=== PATIENT | female | born 1975 | race Caucasian/White ===

== ENCOUNTER 2016-12-01 22:30 | Emergency (ER) | payer MEDICARE | END 2016-12-02 03:20 | disposition home or self-care (01) | LOC: D.ER 22:30 | DX: G43.909 Migraine, unspecified, not intractable, without status migrainosus (principal); M54.5 Low back pain; M54.10 Radiculopathy, site unspecified; M54.31 Sciatica, right side ==

== ENCOUNTER 2016-12-16 05:47 | Emergency (ER) | payer MEDICARE | END 2016-12-16 08:06 | disposition home or self-care (01) | LOC: D.ER 05:47 | DX: M54.5 Low back pain (principal) ==

== ENCOUNTER 2017-01-23 23:18 | Emergency (ER) | payer MEDICARE ==
[2017-01-24 00:55] LABS: BASOPHILS 0.4 % (0.0-2.0); EOSINOPHILS 2.2 % (0-7); HEMATOCRIT 39.3 % (36.0-48.0); HEMOGLOBIN 13.4 g/dL (12-16); IMMATURE GRANULOCYTES 0.7 % (0-5); LYMPHOCYTES 25.7 % (15-50); MCH 29.8 pg (26.0-34.0); MCHC 34.1 g/dL (31.0-37.0); MCV 87.5 fL (80.0-100.0); MEAN PLATELET VOLUME 9.7 fL (7.4-10.4); MONOCYTES 5.3 % (2-11); NEUTROPHILS 65.7 % (40-80); PLATELET COUNT 290 10x3/uL (130-400); RBC 4.49 10x6/uL (4.00-5.40); RDW 12.9 % (11.5-14.5)
[2017-01-24 01:20] LABS: ALBUMIN 3.5 g/dL (3.4-5.0); ANION GAP 11.6 mmol/L (8-16); BILIRUBIN - TOTAL 0.2 mg/dL (0.2-1.3); CALCIUM 8.1 mg/dL (8.5-10.1); CARBON DIOXIDE 27.3 mmol/L (21.0-32.0); CREATININE - SERUM 1.1 mg/dL (0.6-1.3); POTASSIUM - SERUM 3.9 mmol/L (3.5-5.1); PROTEIN - SERUM 6.4 g/dL (6.4-8.2)
== END 2017-01-24 01:55 | disposition home or self-care (01) ==
LOC: D.ER 23:18
PROVIDERS: Physician Assistant Medical
DX: G43.909 Migraine, unspecified, not intractable, without status migrainosus (principal); K52.9 Noninfective gastroenteritis and colitis, unspecified

== ENCOUNTER 2017-02-03 04:38 | Emergency (ER) | payer MEDICARE | END 2017-02-03 06:15 | disposition home or self-care (01) | LOC: D.ER 04:38 | DX: G43.909 Migraine, unspecified, not intractable, without status migrainosus (principal) ==

== ENCOUNTER 2017-02-24 23:42 | Emergency (ER) | payer MEDICARE | END 2017-02-25 02:19 | disposition home or self-care (01) | LOC: D.ER 23:42 | DX: G43.909 Migraine, unspecified, not intractable, without status migrainosus (principal); M54.12 Radiculopathy, cervical region ==

== ENCOUNTER 2017-04-27 01:07 | Emergency (ER) | payer MEDICARE ==
[2017-04-27 03:15] LABS: BASOPHILS 0.4 % (0-2); HEMATOCRIT 39.1 % (36.0-48.0); HEMOGLOBIN 13.4 g/dL (12-16); IMMATURE GRANULOCYTES 0.2 % (0-5); LYMPHOCYTES 31.7 % (15-50); MCH 30.4 pg (26.0-34.0); MCHC 34.3 g/dL (31.0-37.0); MCV 88.7 fL (80.0-100.0); MEAN PLATELET VOLUME 9.7 fL (7.4-10.4); MONOCYTES 6.3 % (2-11); NEUTROPHILS 57.4 % (40-80); PLATELET COUNT 309 10x3/uL (130-400); RBC 4.41 10x6/uL (4.00-5.40); RDW 12.5 % (11.5-14.5); WBC 8.1 10x3/uL (4.8-10.8)
[2017-04-27 03:29] LABS: ALBUMIN 3.1 g/dL (3.4-5.0); ANION GAP 10.8 mmol/L (8-16); BILIRUBIN - TOTAL 0.19 mg/dL (0.2-1.3); CALCIUM 8.2 mg/dL (8.5-10.1); CARBON DIOXIDE 27.1 mmol/L (21.0-32.0); POTASSIUM - SERUM 3.9 mmol/L (3.5-5.1); PROTEIN - SERUM 5.9 g/dL (6.4-8.2)
[2017-04-27 03:46] LABS: APPEARANCE CLEAR (CLEAR); BILIRUBIN NEGATIVE (NEGATIVE); COLOR YELLOW (YELLOW); GLUCOSE NEGATIVE (NEGATIVE); KETONE NEGATIVE (NEGATIVE); LEUKOCYTE ESTERASE NEGATIVE (NEGATIVE); NITRITE NEGATIVE (NEGATIVE); PROTEIN NEGATIVE (NEGATIVE); UROBILINOGEN NORMAL (NORMAL)
== END 2017-04-27 04:35 | disposition home or self-care (01) ==
LOC: D.ER 01:07
PROVIDERS: Physician Assistant Medical
DX: R11.10 Vomiting, unspecified (principal); R51 Headache

== ENCOUNTER 2017-06-01 03:23 | Emergency (ER) | payer MEDICARE | END 2017-06-01 06:18 | disposition home or self-care (01) | LOC: D.ER 03:23 | DX: G43.909 Migraine, unspecified, not intractable, without status migrainosus (principal) ==

== ENCOUNTER 2017-07-29 00:39 | Emergency (ER) | payer MEDICARE | END 2017-07-29 01:39 | disposition home or self-care (01) | LOC: D.ER 00:39 | DX: R51 Headache (principal); M54.9 Dorsalgia, unspecified; R07.9 Chest pain, unspecified ==

== ENCOUNTER → 2017-12-21 19:50 | Outpatient (CLI) | payer MEDICARE | END | disposition home or self-care (01) | LOC: D.SLEEP 12-02 08:00 | DX: G47.33 Obstructive sleep apnea (adult) (pediatric) (principal) ==

== ENCOUNTER 2017-12-26 14:41 | Emergency (ER) | payer MEDICARE | END 2017-12-26 16:04 | disposition home or self-care (01) | LOC: D.ER 14:41 | DX: J20.9 Acute bronchitis, unspecified (principal) ==

== ENCOUNTER 2018-01-24 19:06 | Emergency (ER) | payer MEDICARE | END 2018-01-24 20:01 | disposition home or self-care (01) | LOC: D.ER 19:06 | DX: G43.909 Migraine, unspecified, not intractable, without status migrainosus (principal) ==

== ENCOUNTER 2018-06-01 23:17 | Emergency (ER) | payer MEDICARE ==
[~2018-06-01] VITALS: Ht 162.6 cm; Wt 101.4 kg
[2018-06-01 23:24] VITALS: Ht 162.6 cm; Wt 101.4 kg
[2018-06-01] MEDS ORDERED: HYDROCODONE-APA1 TAB (23:26)
[2018-06-01] MEDS ORDERED: RELPAX20 MG (23:26)
[2018-06-01] MEDS ORDERED: PHENERGAN25 M1 (23:27)
[2018-06-01] MEDS ORDERED: TOPAMAX100 MG (23:27)
[2018-06-02 02:25] VITALS: BP 133/88
== END 2018-06-02 02:01 | disposition home or self-care (01) ==
LOC: D.ER 23:17
DX: G43.909 Migraine, unspecified, not intractable, without status migrainosus (principal)

== ENCOUNTER 2018-10-24 21:09 | Emergency (ER) | payer MEDICARE ==
[~2018-10-24] VITALS: Ht 162.6 cm; Wt 86.4 kg
[~2018-10-24 21:09] MED LIST: HYDROCODONE-APA1 TAB; PHENERGAN25 M1; RELPAX20 MG; TOPAMAX100 MG
[2018-10-24 21:51] VITALS: Ht 162.6 cm; Wt 86.4 kg
[2018-10-25] MEDS ORDERED: BACLOFEN20 M1 PO (00:52)
[2018-10-25] MEDS ORDERED: VOLTAREN75 MG PO (00:52)
[2018-10-25 01:28] VITALS: BP 132/78
== END 2018-10-25 01:29 | disposition home or self-care (01) ==
LOC: D.ER 21:09
DX: M54.5 Low back pain (principal); M62.838 Other muscle spasm

== ENCOUNTER 2019-08-09 12:11 | Emergency (ER) | payer MEDICARE ==
[~2019-08-09] VITALS: Ht 162.6 cm; Wt 99.8 kg
[~2019-08-09 12:11] MED LIST changes: +BACLOFEN20 M1 PO; +VOLTAREN75 MG PO
[2019-08-09] MEDS ORDERED: HYDROCODONE-A1 UDTA2 PO (12:26)
[2019-08-09] MEDS ORDERED: OMEPRAZOLE40 MG PO (12:26)
[2019-08-09] MEDS ORDERED: PRINIVIL20 MG PO (12:26)
[2019-08-09] MEDS ORDERED: ZOFRAN4 MG PO (12:27)
[2019-08-09] MEDS ORDERED: PHENERGAN25 MG RC (12:28)
[2019-08-09 12:49] LABS: BASOPHILS 0.5 % (0-2); EOSINOPHILS 2.5 % (0-7); HEMATOCRIT 41.1 % (36.0-48.0); HEMOGLOBIN 14.2 g/dL (12-16); IMMATURE GRANULOCYTES 0.5 % (0-5); MCH 30.7 pg (26.0-34.0); MCHC 34.5 g/dL (31.0-37.0); MEAN PLATELET VOLUME 9.8 fL (7.4-10.4); MONOCYTES 6.4 % (2-11); NEUTROPHILS 55.1 % (40-80); PLATELET COUNT 353 10x3/uL (130-400); RBC 4.62 10x6/uL (4.00-5.40); RDW 12.8 % (11.5-14.5)
[2019-08-09 13:00] LABS: ALKALINE PHOSPHATASE 49 U/L (46-116); ALT (SGPT) 25 U/L (10-68); BILIRUBIN - TOTAL 0.22 mg/dL (0.2-1.3); CALC OSMOLALITY 284 mosm/kg (275-300); CALCIUM 8.4 mg/dL (8.5-10.1); CARBON DIOXIDE 27.3 mmol/L (21.0-32.0); CHLORIDE - SERUM 108 mmol/L (98-107); CREATININE - SERUM 0.9 mg/dL (0.6-1.3); GLUCOSE 97 mg/dL (74-106); POTASSIUM - SERUM 4.2 mmol/L (3.5-5.1); PROTEIN - SERUM 5.6 g/dL (6.4-8.2); SODIUM 142 mmol/L (136-145); UREA NITROGEN 19 mg/dL (7-18); eGFR NON AFRICAN AMERICAN 72 mL/min (90-120)
[2019-08-09 13:03] LABS: APTT 28.7 SECONDS (22.8-39.4); INR 1.03 (0.85-1.17)
[2019-08-09 13:11] LABS: CKMB 0.5 U/L (0.0-3.6); CREATINE KINASE 75 UL (21-215); MAGNESIUM - SERUM 1.8 mg/dL (1.8-2.4); TROPONIN-I < 0.017 ng/mL (0.000-0.060)
[2019-08-09 16:16] LABS: CKMB 0.6 U/L (0.0-3.6); CREATINE KINASE 70 UL (21-215)
[2019-08-09 16:20] LABS: TROPONIN-I < 0.017 ng/mL (0.000-0.060)
[2019-08-09 17:12] VITALS: Ht 162.6 cm; Wt 99.8 kg
[2019-08-09] MEDS ORDERED: NAPROSYN500 MG PO (17:26)
[2019-08-09 17:47] VITALS: BP 140/86
--- NOTE | 2019-08-18 13:30 | CN ---
PATIENT NAME:CLEOPATRA TALBERT MEDICAL RECORD: [id number] : 75 LOCATION:D.ER ADMIT DATE: ACCOUNT: [id number] CONSULTING PHYSICIAN: OLGA REYNA MD REFERRING PHYSICIAN: SHRUTHI BASSETT MD DATE OF CONSULTATION: 08/09/2019 DIAGNOSES: 1. Chest pain. 2. Hypertension. 3. Family history of coronary artery disease. 4. Smoking exposure, secondhand smoke. 5. Obesity. 6. Hyperlipidemia. HISTORY OF PRESENT ILLNESS: Mrs. Talbert has no previous cardiac history. She has a history of hypertension for which she is on lisinopril. She has been having episodes of chest discomfort, somewhat classic angina with a squeezing pressure-like sensation across the anterior chest. Her EKG is normal. Troponin is normal. PHYSICAL EXAMINATION: CONSTITUTIONAL/GENERAL APPEARANCE: Well nourished, well developed, appears stated age. EYES: Lids and conjunctivae noninjected. No discharge. No pallor. ENT: Lips within normal limit. No cyanosis. No pallor. NECK: Carotid arteries, bilateral normal upstroke. No bruits. No thrills. No jugular venous pressure or distention. CERVICAL LYMPH NODES: Nontender. Nonenlarged. THYROID: Not enlarged. No nodules. CARDIOVASCULAR: Precordial exam, nondisplaced. No heaves or pericardial thrills. Rate and rhythm, regular. Heart sounds, normal S1, normal S2. No S3, no gallop, no rub. Systolic murmur, not heard. Diastolic murmur, not heard. RESPIRATORY: Respiratory effort, unlabored. Normal curvature. No thoracic deformity. No chest wall tenderness. Percussion, resonant. Auscultation, clear. No wheezes, no rales, no rhonchi. ABDOMEN: Soft, nondistended, nontender. No abdominal pain, no vomiting and normal appetite. MUSCULOSKELETAL: No joint tenderness, normal gait, normal tone. SKIN: Warm and dry. OVERALL IMPRESSION: Chest pain compatible with angina with multiple risk factors. We will risk stratify with stress testing and Cardiolite imaging in the near future. Further care depends upon findings of the stress test. TRANSINT:[id number] Voice Confirmation ID: [id number] DOCUMENT ID: [id number] CONSULT REPORT [id number] CLEOPATRA TALBERT OLGA REYNA MD at 1330 CC: [id number] DICTATION DATE: 08/09/191711 CERTIFIED LEGAL SECRETARY SPECIALIST: 08/10/19 0208 DEP ER 08/09/19 [id number] [place] [address]
== END 2019-08-09 17:47 | disposition home or self-care (01) ==
LOC: D.ER 12:11
PROVIDERS: Family Medicine
DX: M94.0 Chondrocostal junction syndrome [Tietze] (principal); G43.909 Migraine, unspecified, not intractable, without status migrainosus; I10 Essential (primary) hypertension

== ENCOUNTER 2019-10-06 23:27 | Emergency (ER) | payer MEDICARE ==
[~2019-10-06] VITALS: Ht 162.6 cm; Wt 97.7 kg
[~2019-10-06 23:27] MED LIST changes: +HYDROCODONE-A1 UDTA2 PO; +NAPROSYN500 MG PO; +OMEPRAZOLE40 MG PO; +PHENERGAN25 MG RC; +PRINIVIL20 MG PO; +ZOFRAN4 MG PO
[2019-10-06 23:32] VITALS: Ht 162.6 cm; Wt 97.7 kg
[2019-10-07 01:14] VITALS: BP 149/79
== END 2019-10-07 01:17 | disposition home or self-care (01) ==
LOC: D.ER 23:27
DX: G43.909 Migraine, unspecified, not intractable, without status migrainosus (principal); I10 Essential (primary) hypertension